=== PATIENT | male | born 1975 | race African-American/Black ===

== ENCOUNTER 2018-01-08 13:35 | Emergency (ER) | payer SELFPAY ==
[~2018-01-08] VITALS: Ht 170.2 cm; Wt 68.0 kg
[~2018-01-08 13:35] MED LIST: Z.0.NO CURRENT MEDS
[2018-01-08 13:40] VITALS: BP 158/96; PULSE 84; RESP 16; TEMP 98; O2SAT 100
[2018-01-08] MEDS ORDERED: FLUT1SPR5 EACH NARE ×2 (13:56→14:12)
[2018-01-08] MEDS ORDERED: FEXO15TA PO ×2 (13:56→14:12)
[2018-01-08] MEDS ORDERED: NEOM0.1O4 RIGHT EYE ×2 (13:56→14:13)
[2018-01-08] MEDS ORDERED: AMOX875T PO ×2 (13:56→14:12)
--- NOTE | 2018-01-08 14:10 | PD ---
HPI Chief Complaint: ENT Complaint Time Seen by Provider: 13:43 Travel History International Travel<30 days: No Contact w/Intl Traveler<30days: No Traveled to known affect area: No History of Present Illness HPI 42-year-old -[place] male presents emergency department with ongoing upper respiratory symptoms including sinus congestion, headache, pressure, ear discomfort, decreased hearing, popping in his ears, and question of drainage from the right ear. Patient states this is been ongoing for almost 8 months but worse in the last couple of weeks. He denies significant sore throat constantly has postnasal drip and hoarseness. He denies significant heartburn or reflux. He states pressure behind both eyes causing occasional blurred vision. He states the right eye occasionally drains and he has a patch of dry itchy skin to the lateral aspect of the right eye. This is been present for several months. Patient states distant history of conjunctivitis approximately 6 months ago. He states no history of allergies in the past but currently may be suffering from them. He has not tried anything [id number]. Patient has no known drug allergies PFSH Past Medical History Medical History: Denies Significant Hx Past Surgical History Surgical History: No Previous Surgery Social History Alcohol Use: Yes Tobacco Use: Yes Substance Use: No Allergies-Medications (Allergen,Severity, Reaction): Coded Allergies: No Known Allergies (Unverified Adverse Reaction, Unknown, 01/08/18) Reported Meds & Prescriptions Reported Meds & Active Scripts Active Harbiwlh-Dithnvmus-Laqrjwhocsctm Opth Oint 3.5 Gm Oint 1 Applic RIGHT EYE QID Nerissa Allergy (Fexofenadine HCl) 180 Mg Tab 180 Mg PO DAILY Flonase Nasal [place] (Fluticasone Nasal [place]) 50 Mcg/Act [place] 100 Mcg EACH NARE BID Amoxicillin 875 Mg Tab 875 Mg PO BID Review of Systems Except as stated in HPI: all other systems reviewed are Neg General / Constitutional: No: Fever, Chills Eyes: Positive: Blurred Vision, Tearing, No: Photophobia (Occasional), Drainage , Redness (Occasional), Foreign Body Sensation, Pain, Blind Spots, Visual changes, Blindness HENT: Positive: Headaches, Sore Throat, Rhinitis (Itchy scratchy), Rhinorrhea, Congestion, Ear Discharge (See history of present illness), Earache, No: Vertigo , Lightheadedness, Nosebleed, Neck Stiffness, Neck Pain, Gingival Bleeding, Dental Difficulties Cardiovascular: No: Chest Pain or Discomfort Respiratory: No: Cough, Shortness of Breath, Wheezing Gastrointestinal: No: Nausea, Vomiting, Diarrhea, Abdominal Pain Genitourinary: No: Dysuria Musculoskeletal: No: Pain Skin: No Rash Neurologic: No: Weakness Psychiatric: No: Depression Endocrine: No: Polydipsia Hematologic/Lymphatic: No: Easy Bruising Physical Exam Narrative GENERAL: Patient appears in no obvious distress. SKIN: Warm and dry. Normal color. Normal turgor. Patient has a small flaky lesion to the right aspect of the right eye lid consistent with possible eczema. HEAD: Atraumatic. Normocephalic. Moderate sinus tenderness to palpation in both frontal maxillary sinuses per EYES: Pupils equal and round. No scleral icterus. No injection or drainage. Ocular motions are full bilaterally ENT: No nasal bleeding or discharge. Mucous membranes pink and moist. TMs show bilateral serous otitis without injection. Dullness bilaterally. Patient has milky rhinitis. Posterior pharynx shows mild injection with cobblestoning and obvious postnasal drip noted. Voice is somewhat hoarse NECK: Trachea midline. Supple nontender. No significant lymphadenopathy. No palpable thyroid. CARDIOVASCULAR: Regular rate and rhythm. RESPIRATORY: No accessory muscle use. Clear to auscultation. Breath sounds equal bilaterally. GASTROINTESTINAL: Abdomen soft, non-tender, nondistended. Hepatic and splenic margins not palpable. MUSCULOSKELETAL: Extremities without clubbing, cyanosis, or edema. No obvious deformities. NEUROLOGICAL: Awake and alert. No obvious cranial nerve deficits. Motor grossly within normal limits. Five out of 5 muscle strength in the arms and legs. Normal speech. PSYCHIATRIC: Appropriate mood and affect; insight and judgment normal. Data Data Last Documented VS Vital Signs Date Time Temp Pulse Resp B/P (MAP) Pulse Ox O2 Delivery O2 Flow Rate FiO2 01/08/18 13:40 98.0 84 16 158/96 (116) 100 Orders Orders Ed Discharge Order (01/08/18 14:13) [facility] Medical Decision Making Medical Screen Exam Complete: Yes Emergency Medical Condition: Yes Differential Diagnosis Chronic serous otitis. Chronic sinusitis. Allergic rhinitis. Eczema Narrative Course Patient is medically stable at time of exam. Patient is treated with amoxicillin 875 twice daily for 2 weeks. Patient started on Nerissa 180 mg daily #30 with 2 refills. Patient started on Flonase nasal spray 2 sprays each nostril daily with 2 refills. Patient is given neomycin/polymyxin/dexamethasone ophthalmic ointment for the right eye and orbital region. As directed Patient is encouraged to quit smoking. Note for school is given. Diagnosis Primary Impression: Allergic rhinitis Qualified Codes: J30.1 - Allergic rhinitis due to pollen Additional Impressions: Serous otitis media Qualified Codes: H65.23 - Chronic serous otitis media, bilateral Chronic sinusitis Qualified Codes: J32.4 - Chronic pansinusitis Patient Instructions: Allergic Rhinitis (ED), General Instructions, How to Stop Smoking (DC), Serous Otitis Media (ED) Departure Forms: School Release Return to School Date: Jan 08, 2018 Additional Instructions: Patient is treated with amoxicillin 875 twice daily for 2 weeks. Patient started on Nerissa 180 mg daily #30 with 2 refills. Patient started on Flonase nasal spray 2 sprays each nostril daily with 2 refills. Patient is given neomycin/polymyxin/dexamethasone ophthalmic ointment for the right eye and orbital region. As directed Patient is encouraged to quit smoking. Note for school is given. Med/Other Pt SpecificInfo: Prescription(s) given Scripts Rozmaztx-Wkgwstven-Pupsmyjrbglyk Opth Oint (Fiwrkbwn-Bgaudaqpd-Scjryfyqhtxcr Opth Oint) 3.5 Gm Oint 1 APPLIC RIGHT EYE QID for Infection, #3.5 GM 0 Refills Prov: Venkata Young MD 01/08/18 Fexofenadine (Nerissa Allergy) 180 Mg Tab 180 MG PO DAILY for Allergy Management, #30 TAB 2 Refills Prov: Venkata Young MD 01/08/18 Fluticasone Nasal [place] (Flonase Nasal [place]) 50 Mcg/Act [place] 100 MCG EACH NARE BID for Allergies, #1 BOTTLE 2 Refills Prov: Venkata Young MD 01/08/18 Amoxicillin (Amoxicillin) 875 Mg Tab 875 MG PO BID for Infection, #28 TAB 0 Refills Prov: Venkata Young MD 01/08/18 Disposition: 01 DISCHARGE HOME Condition: Stable Kenan Siddiqi Jan 08, 2018 14:10
== END 2018-01-08 14:33 | disposition home or self-care (01) ==
LOC: NEPD 13:35
DX: J30.1 Allergic rhinitis due to pollen (principal); H65.23 Chronic serous otitis media, bilateral; J32.4 Chronic pansinusitis; Z72.0 Tobacco use
CPT/HCPCS: 99283